=== PATIENT | female | born 1995 | race Native Hawaiian/Other Pacific Islander ===

== ENCOUNTER 2016-11-18 15:12 | Emergency (ER) | payer OTHER ==
[2016-11-18 15:17] VITALS: RESP 16; O2SAT 99
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
[2016-11-18 17:00] LABS: HCG,QUALITATIVE URINE NEGATIVE (NEGATIVE); SQUAMOUS EPITHIAL 7 /hpf (0-5); URINE BACTERIA RARE (<OCC); URINE BILIRUBIN NEGATIVE (NEGATIVE); URINE BLOOD NEGATIVE (NEGATIVE); URINE CLARITY Clear (Clear); URINE COLOR Yellow (YELLOW); URINE GLUCOSE (UA) NORMAL (Normal); URINE LEUKOCYTE ESTERASE NEG Leu/uL (Negative); URINE NITRATE NEGATIVE (NEGATIVE); URINE PROTEIN NEGATIVE (NEGATIVE); URINE UROBILINOGEN NORMAL mg/dL (0.2-1.0)
[2016-11-18] MEDS ORDERED: Hepatitis B Immune Globulin 1mL Inj IM ONE (19:58)
[2016-11-18] MEDS ORDERED: Emtricitabine-Tenofovir 200 mg-300 mg Tab PO STA (19:58)
[2016-11-18] MEDS ORDERED: Emtricitabine-Tenofovir 200 mg-300 mg Tab PO NR (20:00)
[2016-11-18] MEDS ORDERED: cefTRIAXone (Rocephin) 250 mg Inj IM STA (20:27)
[2016-11-18 20:42] LABS: BASO # 0.1 K/uL (0.0-0.2); BASO % 1.1 % (0.0-2.0); EOS # 0.2 K/uL (0.0-0.7); EOS % 3.2 % (0.0-4.0); HEMOGLOBIN 13.5 g/dL (11.0-16.0); LYMPH # 1.7 K/uL (1.0-4.3); LYMPH % 30.2 % (20.0-40.0); MEAN CORPUSCULAR HEMOGLOBIN 33.2 pg (27.0-31.0); MEAN CORPUSCULAR HGB CONC 33.6 g/dL (33.0-37.0); MEAN PLATELET VOLUME 7.4 fL (7.2-11.7); MONO # 0.5 K/uL (0.0-0.8); MONO % 8.4 % (0.0-10.0); NEUT # 3.3 K/uL (1.8-7.0); NEUT % 57.1 % (50.0-75.0); RBC 4.06 Mil/uL (3.80-5.20); RED CELL DISTRIBUTION WIDTH 13.7 % (11.5-14.5); WHITE BLOOD COUNT 5.7 K/uL (4.8-10.8)
[2016-11-18 20:50] LABS: MEAN CELL VOLUME 98.9 fL (81.0-99.0)
[2016-11-18 20:52] LABS: ALBUMIN 4.7 g/dL (3.5-5.0)
[2016-11-18 20:55] LABS: ALB/GLOB RATIO 1.2 (1.0-2.1); ALT/SGPT 18 U/L (9-52); AST/SGOT 22 U/L (14-36); BLOOD UREA NITROGEN 12 mg/dL (7-17); CALCIUM 9.8 mg/dl (8.6-10.4); GFR AFRICAN-AMERICAN > 60; GFR NON-AFRICAN AMERICAN > 60
[2016-11-18 22:09] VITALS: BP 121/87; PULSE 84; TEMP 98.1
== END 2016-11-18 22:09 | disposition home or self-care (01) ==
LOC: C.ER 15:12
DX: Z04.41 Encounter for examination and observation following alleged adult rape (principal)
CPT/HCPCS: 80053; 81001; 84703; 85025; 86592; 86703; 86706; 96372; 99285; J0696

== ENCOUNTER 2018-01-05 19:47 | Emergency (ER) | payer SELFPAY ==
[2018-01-05 19:52] VITALS: TEMP 97.6
[2018-01-05 20:03] VITALS: BP 123/76; PULSE 110; RESP 18; O2SAT 100
[2018-01-05] MEDS ORDERED: Albuterol-Ipratrop 3 mg / 0.5 (3 ml) UD INH STA (20:11)
[2018-01-05] MEDS ORDERED: DiphenhydrAMINE 50 mg/ml Inj IVP STA (20:11)
[2018-01-05] MEDS ORDERED: Albuterol-Ipratrop 3 mg / 0.5 (3 ml) UD ONE (20:22)
[2018-01-05] MEDS ORDERED: DiphenhydrAMINE 50 mg/ml Inj ONE (20:23)
--- NOTE | 2018-01-05 21:42 | C.PDOC ---
History Of Present Illness 22 y/o female presents to ED c/o allergic reaction after eating chilli pepper in food. She reports burning sensation to face, shortness of breath, difficulty swallowing, and hives to chest and neck area. She reports her hands felt cold and became red. Denies any known allergy. Time Seen by Provider: 01/05/18 20:10 Chief Complaint (Nursing): Allergic Reaction History Per: Patient History/Exam Limitations: no limitations Onset/Duration Of Symptoms: Hrs Current Symptoms Are (Timing): Still Present Associated Symptoms: Skin Rash, Dyspnea, Trouble Swallowing, Redness Recent travel outside of the [place]: No Additional History Per: Patient Past Medical History Reviewed: Historical Data, Nursing Documentation, Vital Signs Vital Signs: Last Vital Signs Temp 97.6 F 01/05/18 19:50 Pulse 110 H 01/05/18 20:02 Resp 18 01/05/18 20:02 BP 123/76 01/05/18 20:02 Pulse Ox 100 01/05/18 22:55 - Medical History PMH: Depression Denies: Diabetes, Hepatitis, HIV, HTN, Chronic Kidney Disease, Seizures, Sexually Transmitted Disease - [facility] Procedures INDIVID PSYCHOTHERAP NEC (08/31/14) OTHER GROUP THERAPY (08/31/14) Family History: States: Unknown Family Hx - Social History Hx Alcohol Use: Yes (possible binge drinking/weekends) Hx Substance Use: Yes (social use of "weed") - Immunization History Hx Tetanus Toxoid Vaccination: No Hx Influenza Vaccination: No Hx Pneumococcal Vaccination: No Review Of Systems Except As Marked, All Systems Reviewed And Found Negative. Constitutional: Negative for: Fever, Chills Eyes: Negative for: Pain, Vision Change ENT: Positive for: Throat Swelling (difficulty swallowing). Negative for: Ear Pain, Ear Discharge, Mouth Swelling Cardiovascular: Negative for: Chest Pain, Palpitations, Light Headedness Respiratory: Positive for: Shortness of Breath, SOB with Excertion. Negative for: Cough, Hemoptysis, Pleuritic Pain, Wheezing Gastrointestinal: Negative for: Nausea, Vomiting, Abdominal Pain Genitourinary: Negative for: Dysuria Skin: Positive for: Rash Neurological: Negative for: Weakness, Numbness, Headache, Dizziness Psych: Negative for: Anxiety Physical Exam - Physical Exam Appears: Non-toxic, No Acute Distress Skin: Warm, Dry, No Rash (no hives) Head: Atraumatic, Normacephalic Eye(s): bilateral: Normal Inspection, PERRL, EOMI Nose: Normal Oral Mucosa: Moist Tongue: Normal Appearing, No Swelling Lips: Normal Appearing, No Swelling Gingiva: Normal Appearing Throat: Normal, No Erythema, No Exudate, No Drooling, Other (no edema to posterior pharynx, no swelling to uvula) Neck: Normal ROM, Supple Chest: Symmetrical Cardiovascular: Rhythm Regular Respiratory: Normal Breath Sounds, No Accessory Muscle Use, No Rales, No Rhonchi , No Stridor, No Wheezing Gastrointestinal/Abdominal: Soft, No Tenderness Extremity: Normal ROM, No Deformity Extremity: Bilateral: Atraumatic, No Pedal Edema, Normal Color And Temperature, Normal ROM Neurological/Psych: Oriented x3, Normal Speech ED Course And Treatment O2 Sat by Pulse Oximetry: 100 Pulse Ox Interpretation: Normal Critical Care Time - Critical Care Note Total Time (in mins): 30 Documented critical care: time excludes all time spent performing seperately billable procedures. Medical Decision Making Medical Decision Making: Plan:Pt required and recieved my immediate medical attention for severe allergic reaction with trouble breathing Benadryl Pepcid Solu-Medrol Albuterol pt observed for 6 hours since onset of symptoms without incidence. hugo ldc to home with follow up and rx for steroids/ pepcid/benadryl. Disposition Counseled Patient/Family Regarding: Diagnosis - Disposition Disposition: HOME/ ROUTINE Disposition Time: 22:52 Condition: GOOD Additional Instructions: return if symptoms return or worsen Prescriptions: DiphenhydrAMINE [Benadryl] 25 mg PO Q6 5 Days #20 cap Famotidine [Pepcid] 40 mg PO DAILY 6 Days #6 tablet Prednisone 50 mg PO DAILY 6 Days #6 tab Forms: [employer] (Kinyarwanda) - Clinical Impression Clinical Impression: Allergic urticaria, Bronchospasm, Allergic reaction - Scribe Statement The provider has reviewed the documentation as recorded by the Scribe KP All medical record entries made by the Scribe were at my direction and personally dictated by me. I have reviewed the chart and agree that the record accurately reflects my personal performance of the history, physical exam, medical decision making, and the department course for this patient. I have also personally directed, reviewed, and agree with the discharge instructions and disposition.
== END 2018-01-05 23:54 | disposition home or self-care (01) ==
LOC: C.ER 19:47
DX: L50.0 Allergic urticaria (principal); J98.01 Acute bronchospasm; F17.210 Nicotine dependence, cigarettes, uncomplicated
CPT/HCPCS: 96365; 96375; 99284; J1200; J2930